=== PATIENT | female | born 1945 | race Caucasian/White ===

== ENCOUNTER 2021-12-10 07:09 | Emergency (ER) | payer MEDICARE, OTHER ==
[~2021-12-10] VITALS: Ht 154.9 cm; Wt 80.3 kg
[~2021-12-10 07:09] MED LIST: EUTHYROX75 MCG PO; FUROSEMIDE20 MG PO; LANTUS100 UNITS/ SUB-Q; OZEMPIC0.25 MG/0.; VITAMIN D31250 MC1 PO
--- OUTSIDE RECORDS SUMMARY | 2021-12-10 07:16 | XMS ---
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 Ana Paula has no Care Guidelines for this patient. [facility] (12 MO.) [facility] NOTE: Visits indicate total known visits. ED/[facility] VISIT TRACKING (12 MO.) [facility] 07[facility] COMPLAINT: - DIZZY, SOB, LIGHTHEADED 12/02/2021 12:14 [facility] Mosley [place] TYPE: Emergency COMPLAINT: - DIZZY, FAINTING DIAGNOSES: - Type 2 diabetes mellitus without complications - Palpitations - retirement (current) use of insulin - Syncope and collapse INPATIENT VISIT TRACKING (12 MO.) No inpatient visits to display in this time frame [email or web address]
[2021-12-10] MEDS ORDERED: BAYER CHEWABLE81 MG PO (07:29)
== END 2021-12-10 08:18 | disposition home or self-care (01) ==
LOC: ED 07:09
DX: R53.1 Weakness (principal); R42 Dizziness and giddiness; I48.91 Unspecified atrial fibrillation; E11.9 Type 2 diabetes mellitus without complications; Z79.899 Other long term (current) drug therapy; Z79.4 Long term (current) use of insulin; Z79.82 Long term (current) use of aspirin
CPT/HCPCS: 36415; 80053; 83735; 84443; 84484; 85025; 99285-25

== ENCOUNTER 2023-04-04 07:14 | Emergency (ER) | payer MEDICARE, OTHER ==
[~2023-04-04] VITALS: Ht 154.9 cm; Wt 79.0 kg
[~2023-04-04 07:14] MED LIST changes: +BAYER CHEWABLE81 MG PO; +DILTIAZEM 24HR120 MG PO
[2023-04-04] MEDS ORDERED: OLMESARTAN MEDOX5 MG PO (08:19)
[2023-04-04] MEDS ORDERED: XARELTO20 MG PO (08:20)
[2023-04-04 08:55] VITALS: BP 168/63
== END 2023-04-04 08:55 | disposition home or self-care (01) ==
LOC: ED 07:14
DX: S52.572A Other intraarticular fracture of lower end of left radius, initial encounter for closed fracture (principal); E11.9 Type 2 diabetes mellitus without complications; I48.91 Unspecified atrial fibrillation; W01.0XXA Fall on same level from slipping, tripping and stumbling without subsequent striking against object, initial encounter; Z79.4 Long term (current) use of insulin; Z79.890 Hormone replacement therapy; Z79.899 Other long term (current) drug therapy
CPT/HCPCS: 73110

== ENCOUNTER 2024-02-21 11:42 | Emergency (ER) | payer MEDICARE, OTHER ==
[~2024-02-21] VITALS: Ht 154.9 cm; Wt 63.5 kg
[~2024-02-21 11:42] MED LIST changes: +OLMESARTAN MEDOX5 MG PO; +XARELTO20 MG PO
[2024-02-21] MEDS ORDERED: OZEMPIC2 MG/0.75 SUB-Q (11:56)
[2024-02-21] MEDS ORDERED: AMIODARONE HCL200 MG PO (11:56)
[2024-02-21] MEDS ORDERED: DIPHTH,PERTUSS(ACELL),TET VAC 0.5 ML SYRINGE IM ONE (12:00)
[2024-02-21 12:45] VITALS: BP 121/63
== END 2024-02-21 12:42 | disposition home or self-care (01) ==
LOC: ED 11:42
DX: S61.213A Laceration without foreign body of left middle finger without damage to nail, initial encounter (principal); W45.8XXA Other foreign body or object entering through skin, initial encounter; Z23 Encounter for immunization; I48.91 Unspecified atrial fibrillation; E11.9 Type 2 diabetes mellitus without complications; E03.9 Hypothyroidism, unspecified; Z79.4 Long term (current) use of insulin; Z79.01 Long term (current) use of anticoagulants; Z79.890 Hormone replacement therapy; Z79.899 Other long term (current) drug therapy
CPT/HCPCS: 90471; 90715; 99282-25

== ENCOUNTER 2025-01-05 10:02 | Emergency (ER) | payer MEDICARE ==
[~2025-01-05] VITALS: Ht 154.9 cm; Wt 54.7 kg
[~2025-01-05 10:02] MED LIST changes: +AMIODARONE HCL200 MG PO; +OZEMPIC2 MG/0.75 SUB-Q
[2025-01-05 10:21] LABS: BASOPHILS 0.4 % (0.1-1.2); EOSINOPHILS 0.7 % (0.7-5.8); LYMPHOCYTES 25.2 % (19.3-51.7); MCH 29.6 PG (25.6-32.2); MCHC 32.2 g/dL (32.2-35.5); MCV 92.0 fL (79.4-94.8); MONOCYTES 8.2 % (4.7-12.5); NEUTROPHILS 65.4 % (34.0-71.1); RBC 4.02 M/uL (3.93-5.22)
[2025-01-05] MEDS ORDERED: SODIUM CHLORIDE 0.9% 1,000 ML IV PRN (10:30)
[2025-01-05 10:37] LABS: ALCOHOL, MEDICAL <3 ng/dL (<3); ALT (SGPT) 33 U/L (14-59); AST (SGOT) 22 U/L (15-37); GLOMERULAR FILTRATION RATE,EST 85 mL/min (>60); PROTEIN, TOTAL 6.8 g/dL (6.4-8.2); UREA NITROGEN 12 mg/dL (7-18)
[2025-01-05] MEDS ORDERED: DILT-XR240 MG PO (10:54)
[2025-01-05] MEDS ORDERED: LIOTHYRONINE SO5 MCG PO (10:55)
[2025-01-05 11:20] LABS: BLOOD/HGB, URINE NEGATIVE (Negative); KETONE, URINE NEGATIVE (Negative); LEUK ESTERASE, URINE NEGATIVE (negative); NITRITE, URINE POSITIVE (negative)
[2025-01-05 11:28] LABS: BACTERIA, URINE 4+ /hpf (negative); CASTS, URINE NONE SEEN \\lpf; CRYSTALS, URINE NONE SEEN (0-1+); EPITHELIAL CELLS, URINE SQUAMOUS 1+ /lpf (0-1+)
[2025-01-05 11:29] LABS: REFLEX CULTURE, URINE Yes (No)
[2025-01-05] MEDS ORDERED: AMOX TR-K CLV1 EAC1 PO (11:52)
[2025-01-05 12:40] VITALS: BP 140/63
--- NOTE | 2025-01-09 15:22 | EKG ---
[facility] [address] [place] [address] Signed Atrial-paced rhythm with prolonged AV conduction Abnormal ECG When compared with ECG of 07-JUN-2022 11:26, Electronic atrial pacemaker has replaced Atrial fibrillation Vent. rate has decreased BY [address] no longer depressed in Inferior leads ST no longer depressed in Anterior leads Nonspecific T wave abnormality no longer evident in Inferior leads Confirmed by Katie Bowden MD () on 01/09/2025 3:22:10 PM Electronically Signed By: KATIE BOWDEN MD 01/09/25 1522 PATIENT NAME: CECILIA BAIRD SPENSER Electrocardiogram DATE OF : 49 PHYSICIAN: KATIE BOWDEN MD REPORT #: [id number] REPORT IS CONFIDENTIAL AND NOT TO BE RELEASED WITHOUT AUTHORIZATION
[2025-01-21] MEDS ORDERED: TRESIBA100 UNIT/1 SUB-Q (15:50)
[2025-01-21] MEDS ORDERED: HUMALOG100 UNITS/ SUB-Q (15:51)
[2025-01-21] MEDS ORDERED: NITROSTAT0.4 MG SL (15:52)
[2025-01-21] MEDS ORDERED: CARDIZEM30 MG PO (15:52)
== END 2025-01-05 12:37 | disposition home or self-care (01) ==
LOC: ED 10:02
PROVIDERS: Emergency Medicine
DX: J32.3 Chronic sphenoidal sinusitis (principal); I48.91 Unspecified atrial fibrillation; E11.9 Type 2 diabetes mellitus without complications; E03.9 Hypothyroidism, unspecified; Z79.01 Long term (current) use of anticoagulants; Z79.890 Hormone replacement therapy; Z79.899 Other long term (current) drug therapy
CPT/HCPCS: 36415; 70450; 71045; 72125; 80053; 81001; 85025; 87088; 87186; 93005; 93010; 99284-25; G0480

== ENCOUNTER 2025-01-22 08:23 | Day surgery (SDC) | payer MEDICARE ==
[~2025-01-22] VITALS: Ht 154.9 cm; Wt 55.0 kg
[~2025-01-22 08:23] MED LIST changes: +AMOX TR-K CLV1 EAC1 PO; +CARDIZEM30 MG PO; +CEFAZOLIN SODIUM 2 GM/20 ML SYR IV SCH; +DILT-XR240 MG PO; +HUMALOG100 UNITS/ SUB-Q; +IBLOOD GLUCOSE TEST STRIP 1 EA TEST VI PRN; +LACTATED RINGER'S 1,000 ML IV SCH; +LIDOCAINE 1% W/ EPI 1:100,000 20 ML MDV ONE; +LIDOCAINE HCL 1% 5 ML SDV INJ ONE; +LIOTHYRONINE SO5 MCG PO; +NITROSTAT0.4 MG SL; +TRESIBA100 UNIT/1 SUB-Q
[2025-01-22 08:42] VITALS: BP 143/72
[2025-01-22] MEDS ORDERED: OXYMETAZOLINE HCL 30 ML BTL NAS SCH (09:00)
[2025-01-22] MEDS ORDERED: ACETAMINOPHEN 1,000 MG/100 ML VIAL ONE (10:03)
[2025-01-22] MEDS ORDERED: fentaNYL citrate 100 MCG/2 ML VIAL ONE (10:03)
[2025-01-22] MEDS ORDERED: LIDOCAINE HCL 2% 5 ML SDV ONE (10:03)
[2025-01-22] MEDS ORDERED: CEFAZOLIN SODIUM 1 GM/10 ML SYR ONE (10:09)
[2025-01-22] MEDS ORDERED: CEFAZOLIN SODIUM 1 GM/10 ML SYR IV ONE (10:30)
[2025-01-22] MEDS ORDERED: NALOXONE HCL 0.4 MG SYR IV PRN (10:45)
[2025-01-22] MEDS ORDERED: HYDROmorphone HCL 1 MG/ML SYR IV PRN (10:45)
[2025-01-22] MEDS ORDERED: IBLOOD GLUCOSE TEST STRIP 1 EA TEST VI PRN (10:45)
[2025-01-22] MEDS ORDERED: PROCHLORPERAZINE EDISYLATE 10 MG/2 ML VIAL IV PRN (10:45)
[2025-01-22] MEDS ORDERED: fentaNYL citrate 50 MCG/ML SDV IV PRN (10:45)
--- NOTE | 2025-01-22 10:50 | NUR ---
01/22/25 1050 Elise James 1042-PATIENT ARRIVED TO PACU ON 6L MASK NONAROUSABLE RR EVEN. APACED HR 60'S. IVF INFUSING. NO DRAINAGE TO RIGHT NARE. GUZMAN WOODS PLACED GAUZE AND TAPE TO NOSE. GLUCOSE LEVEL 106 1046-PATIENT REACTIVE TO VERBAL STIMULI DR MACIEL AT BEDSIDE. DENIES PAIN OR NAUSEA. 6L MASK RR EVEN 100%
--- NOTE | 2025-01-22 11:15 | NUR ---
PT ARRIVES TO DS DEPT FROM PACU VIA STRETCHER. PT IS A&O AND ASKING APPROPRIATE QUESTIONS AT THIS TIME. PT RESPIRATIONS EVEN AND UNLABORED, NO SIGNS OF DISTRESS. PT REPORTS NO PAIN, JUST TICKLE IN HER THROAT ON THE RT SIDE THAT SHE HAD PRE-OP WELL. PT TOLERATING SMALL SIPS OF WATER WITH NO DIFFICULTY SWALLOWING. PT FAMILY IN ROOM, CALL LIGHT WITHIN REACH, PT STATES NO FURTHER NEEDS OR QUESTIONS AT THIS TIME. RAHEEM MURILLO CALLED BY THIS RN TO CLARIFY WHEN PT TO RESTART ELIQUIS, VO FOR PT OKAY TO RESTART ELIQUIS TODAY.
[2025-01-22 11:23] VITALS: BP 165/56
--- NOTE | 2025-01-22 12:05 | NUR ---
IN PT ROOM FOR PAIN ASSESSMENT. PT STATES PAIN REMAINS VERY LOW AND TOLERABLE. PT STATES SHE WOULD LIKE TO GO TO RESTROOM. PT SITS AT EDGE OF BED, STATES SLIGHT FUZZINESS IN HEAD, BUT NO NAUSEA OR DIZZINESS. PT STANDS AT BEDSIDE AND GAIT IS STEADY. THIS RN STANDBY ASSIST TO RESTROOM FOR PT URINE VOID. PT BACK TO ROOM AND GETTING DRESSED SITTING DOWN WITH AT BEDSIDE. CALL LIGHT WITHIN REACH.
--- NOTE | 2025-01-22 12:20 | NUR ---
IN PT ROOM FOR VS, ASSESSMENT, DEMONSTRATION OF DRIP PAD CHANGE, AND DC EDUCATION. PT AND PT DAUGHTER IN LAW AT BEDSIDE. PT STATES VERBAL UNDERSTANDING FOR ALL EDUCATION PROVIDED AND NO FURTHER QUESTIONS OR NEEDS AT THIS TIME. SUPPLIES SENT WITH PT FOR DRIP PAD CHANGE. PT OFF UNIT VIA WC TO BACKSEAT OF VEHICLE. ALL BELONGINGS IN PT POSSESSION AT THIS TIME. ICE WATER PROVIDED. PT AND PT FAMILY STATE NO FURTHER NEEDS OR QUESTIONS AT THIS TIME.
[2025-01-22 12:24] VITALS: BP 168/64
[2025-01-22] MEDS ORDERED: SEVOFLURANE 250 ML BTL INH ONE (17:12)
--- NOTE | 2025-01-29 11:34 | PATH ---
[facility] [address], [place] [address] Signed SPECIMEN(S): A RIGHT MAXILLARY SINUS CONTENTS SPECIMEN SOURCE: A. RIGHT MAXILLARY SINUS CONTENTS CLINICAL HISTORY: Chronic right sphenoid maxillary sinusitis FINAL PATHOLOGIC DIAGNOSIS: Right maxillary sinus contents: - Abundant fungal elements (fungus ball). - Scant benign respiratory mucosa with acute and chronic inflammation and reactive features. - Fragment of benign bone. JVR:clv MICROSCOPIC EXAMINATION: Histologic sections of all submitted blocks are examined by light microscopy. These findings, together with the gross examination, support the pathologic diagnosis. A PAS with diastase stain is performed with appropriate controls on block A1 is positive within the fungal elements supporting the diagnosis. JVR:clv GROSS DESCRIPTION: The specimen, labeled and designated "[place], right maxillary sinus contents," is received in formalin and consists of multiple fragments of red-brown soft and cartilaginous tissue (2.4 x 0.7 x 0.3 cm in aggregate). The specimen is submitted entirely in cassette (A1) following decalcification in decal stat. VB (under the direct supervision of a pathologist) The Gross Description was prepared using a voice recognition system. The report was reviewed for accuracy; however, sound-alike word errors, addition and/or deletions may occur. If there is any question about this report, please contact Client Services. PERFORMING LABORATORY: Technical component was performed by [employer] [address] [place] [id number] (CLIA# [id number]). Professional interpretation was performed by [facility], [address] [place] [id number] (CLIA#: [id number]). PATIENT NAME: CECILIA BAIRD PATHOLOGY DATE OF : 49 REPORT #: [id number] PHYSICIAN: CANDE PATHOLOGY PCP: PRITI BONE DO REPORT IS CONFIDENTIAL AND NOT TO BE RELEASED WITHOUT AUTHORIZATION [address] [place], [place] [address] Signed Diagnostician: Ld Brink MD Pathologist Electronically Signed 01/29/2025 Copies: ~ PATIENT NAME: CECILIA BAIRD SPENSER PATHOLOGY DATE OF : 49 REPORT #: [id number] PHYSICIAN: CANDE PATHOLOGY PCP: PRITI BONE DO REPORT IS CONFIDENTIAL AND NOT TO BE RELEASED WITHOUT AUTHORIZATION
--- NOTE | 2025-01-29 11:51 | OR ---
[facility] [address] [place], [place] [address] Signed DATE OF OPERATION: 01/22/2025 SURGEON: Ben Padilla MD PREOPERATIVE DIAGNOSIS: Chronic right maxillary and sphenoid sinusitis. POSTOPERATIVE DIAGNOSIS: Chronic right maxillary and sphenoid sinusitis. PROCEDURE: Right sphenoid and right maxillary sinusotomy. ANESTHESIA: General LMA; DOOR ATTENDANT, Emir. PREOPERATIVE HISTORY: Cecilia is a 79-year-old lady with chronic headaches, chronic sinusitis, consisting of the right sphenoid and right maxillary sinus opacification. This has been present despite appropriate medications and she is taken to the operating room for the above-mentioned procedures. OPERATIVE PROCEDURE AND FINDINGS: After informed consent, the patient was taken to the operating room, placed in supine position where general LMA anesthesia was induced. The patient procedure were verified. The patient received preoperative intranasal oxymetazoline, intravenous Ancef. The preop CT was viewed throughout the nasal cavity. Left side was inspected, unremarkable. The right side also approached. The small ball probe was used to pass posteriorly to find the sphenoid ostium. The ostium was identified, probed and widening of the sphenoid ostium was performed using 8 [place] suction. The sphenoid sinus was aspirated. There was no foreign material obtained, it appeared that the sphenoid ostium was widened appropriately. Minimal bleeding. Right maxillary sinus was then entered with a curved ring curette in the middle meatus. The antrostomy was widened with a curette. A curved Stella was then used to obtain material from the maxillary sinus. This was black fungal inspissated secretions. The sinus was curetted completely. No further material was obtained. Minimal bleeding. Pharynx was suctioned clear of blood and secretions. Hemostasis was verified. No packing placed. The patient was then awakened, extubated, transported to recovery room in good condition. No complications. Electronically Signed By: BEN PADILLA MD 01/29/25 1151 PATIENT NAME: CECILIA BAIRD OPERATIVE REPORT DATE OF : 49 REPORT #: [id number] PHYSICIAN: BEN PADILLA MD PCP: PRITI BONE DO REPORT IS CONFIDENTIAL AND NOT TO BE RELEASED WITHOUT AUTHORIZATION [facility] [address] [place] [id number] Signed BLOOD LOSS: Minimal. SPECIMEN: Right maxillary sinus contents to Pathology. DRAINS: None. PACKING: None. Ben Padilla MD GC/MODL /[id number] Copies: ~ Electronically Signed By: BEN PADILLA MD 01/29/25 1151 PATIENT NAME: CECILIA BAIRD OPERATIVE REPORT DATE OF : 49 REPORT #: [id number] PHYSICIAN: BEN PADILLA MD PCP: PRITI BONE DO REPORT IS CONFIDENTIAL AND NOT TO BE RELEASED WITHOUT AUTHORIZATION
== END 2025-01-22 12:35 | disposition home or self-care (01) ==
LOC: DS 08:23
PROVIDERS: ATTEND Otolaryngology
PROC: 099 Ear, Nose, Sinus, Drainage (ICD-10-PCS; 2025-01-22)
PROC: 099Q7ZZ Drainage of Right Maxillary Sinus, Via Natural or Artificial Opening (ICD-10-PCS; principal; 2025-01-22 10:00)
DX: J32.3 Chronic sphenoidal sinusitis (principal); J32.0 Chronic maxillary sinusitis; J01.00 Acute maxillary sinusitis, unspecified; I10 Essential (primary) hypertension; E03.9 Hypothyroidism, unspecified; E11.9 Type 2 diabetes mellitus without complications; I48.91 Unspecified atrial fibrillation; Z79.4 Long term (current) use of insulin; Z79.01 Long term (current) use of anticoagulants; Z79.890 Hormone replacement therapy; Z79.899 Other long term (current) drug therapy; Z88.5 Allergy status to narcotic agent; Z88.8 Allergy status to other drugs, medicaments and biological substances
CPT/HCPCS: 00160; 88305; 88311; 88312; J0131; J0690; J2003; J2405; J2704; J3010; J7121